=== PATIENT | female | born 1980 | race African-American/Black ===

== ENCOUNTER → 2016-11-28 | Outpatient (CLI) | payer MEDICAID | LOC: MW.MNT 12:05 | CPT/HCPCS: 97802 ==

== ENCOUNTER → 2016-12-07 | Outpatient (CLI) | payer MEDICAID ==
[2016-12-07 10:10] LABS: CHLORIDE,CL 106 mmol/L (98-110); SODIUM,NA 139 mmol/L (136-146)
--- NOTE | 2016-12-07 16:29 | US ---
EXAM DATE: 12/07/16 PATIENT'S AGE: 36 Patient: SARAH NAVA Facility: [place], [place] Site . Site : 1980 Study: US Abdomen [id number]/9/2017 10:37:22 AM Ordering Physician: Tracey Torres Final Report: INDICATION: Cholelithiasis. Right upper quadrant pain. TECHNIQUE: Ultrasound abdomen limited. Sonographic images of the right upper quadrant were obtained using merino-scale and color Doppler images. COMPARISON: None. FINDINGS: Gallbladder: Multiple gallbladder stones are present. No sign of gallbladder wall thickening or pericholecystic fluid. Common bile duct: 5 mm. IMPRESSION: Cholelithiasis without further evidence of cholecystitis. Dictated by Elver Randle MD @ 12/07/2016 10:54:11 AM Dictated by: Elver Randle MD @ 12/07/2016 10:54:18 (Electronic Signature) Report Signed by Proxy and Original Signed Document filed in the Medical Record. MTDD
== END ==
LOC: MW.CHIM 09:28
PROVIDERS: ATTEND Internal Medicine
DX: K80.00 Calculus of gallbladder with acute cholecystitis without obstruction (principal)
CPT/HCPCS: 36415; 76705; 76705-26; 80053; 85025

== ENCOUNTER 2017-02-10 11:52 | Emergency (ER) | payer MEDICAID, OTHER ==
[2017-02-10] MEDS ORDERED: Ketorolac 60 MG/2 ML SDV IM ONE (12:03)
[2017-02-10] MEDS ORDERED: Cyclobenzaprine 10 MG Tab PO ONE (12:11)
--- NOTE | 2017-02-10 12:23 | EDM.PDOC ---
ED HPI GENERAL MEDICAL PROBLEM - General Chief Complaint: Upper Extremity Injury/Pain Stated Complaint: PT FELT Time Seen by Provider: 02/10/17 11:53 Source of Information: Reports: Patient History Limitations: Reports: No Limitations - History of Present Illness INITIAL COMMENTS - FREE TEXT/NARRATIVE: History of present illness: [] Patient was cleaning house yesterday and her 4-year-old was behind her when she was putting sheets away in a closet and twisted and lost her balance. She did not want to fall down on her daughter so she fell onto her left side twisting away from her daughter. She states she has severe pain in her left side and it hurts to take deep breaths and to wipe. She does not feel short of breath denies any blood in her urine or abdominal pain. Review of systems: As per history of present illness and below otherwise all systems reviewed and negative. Past medical history: As per history of present illness and as reviewed below otherwise noncontributory. Surgical history: As per history of present illness and as reviewed below otherwise noncontributory. Social history: No reported history of drug or alcohol abuse. Family history: As per history of present illness and as reviewed below otherwise noncontributory. Physical exam: General: Well developed, well nourished in NAD, HEENT: Atraumatic, normocephalic, pupils reactive, negative for conjunctival pallor or scleral icterus, mucous membranes moist, throat clear, neck supple, nontender, trachea midline. Lungs: Clear to auscultation, breath sounds equal bilaterally, chest nontender. Heart: S1S2, regular, negative for clicks, rubs, or JVD. Abdomen: Obese, Soft, nondistended, left side tenderness. Negative for masses or hepatosplenomegaly. Negative for costovertebral tenderness. Pelvis: Stable nontender. Genitourinary: Deferred. Rectal: Deferred. Extremities: Atraumatic, negative for cords or calf pain. Neurovascular unremarkable. Neuro: Awake, alert, oriented. Cranial nerves II through XII unremarkable. Cerebellum unremarkable. Motor and sensory unremarkable throughout. Exam nonfocal. Diagnostics: [] Urine shows no blood on the chest x-ray Therapeutics: [] Toradol and Flexeril given in the ED Impression: [] Left side pain, likely muscle strain secondary to sudden twisting Plan: [] Tramadol Flexeril as needed for pain ice to area followup with PMD return if symptoms worsen or change Definitive disposition and diagnosis as appropriate pending reevaluation and review of above. left side of the abdomen Pain Score (Numeric/FACES): 10 - Related Data Allergies Allergy/AdvReac Type Severity Reaction Status Date / Time acetaminophen [From Vicodin] Allergy Other Verified 02/10/17 11:54 hydrocodone [From Vicodin] Allergy Other Verified 02/10/17 11:54 Home Meds: Home Meds Cyclobenzaprine [Flexeril] 10 mg PO BID PRN #12 tablet 02/10/17 [Rx] Hydrochlorothiazide [Hydrochlorothiazide] 25 mg PO DAILY 02/10/17 [History] traMADol [Ultram] 50 mg PO Q8H PRN #12 tablet 02/10/17 [Rx] Past Medical History HEENT History: Reports: None Cardiovascular History: Reports: Hypertension Respiratory History: Reports: None Gastrointestinal History: Reports: Other (See Below) Other Gastrointestinal History: Gallstones Genitourinary History: Reports: None [employer] History: Reports: Musculoskeletal History: Reports: None Neurological History: Reports: None Psychiatric History: Reports: None Endocrine/Metabolic History: Reports: None Hematologic History: Reports: None Immunologic History: Reports: None Oncologic (Cancer) History: Reports: None Dermatologic History: Reports: None - Infectious Disease History Infectious Disease History: Reports: None Social & Family History - Family History Family Medical History: Noncontributory - Tobacco Use Smoking Status *Q: Never Smoker - Caffeine Use Caffeine Use: Reports: Coffee - Recreational Drug Use Recreational Drug Use: No Review of Systems - Review of Systems Review Of Systems: See Below (See history of present illness) Trauma Exam - Physical Exam Exam: See Below (See history of present illness) Course - Vital Signs Last Recorded V/S: Last Vital Signs Temp 36.1 C 02/10/17 11:55 Pulse 77 02/10/17 11:55 Resp 18 02/10/17 11:55 BP 145/85 H 02/10/17 11:55 Pulse Ox 100 02/10/17 11:55 - Orders/Labs/Meds Orders: Active Orders 24 hr Category Date Time Status Chest 2V [CR] Stat Exams 02/10/17 12:03 Taken Labs: Laboratory Tests 02/10/17 Range/Units 12:10 Urine Color YELLOW Urine Appearance SLT CLOUDY Urine pH 6.0 (5.0-8.0) Ur Specific [place] 1.025 (1.001-1.035) Urine Protein TRACE (NEGATIVE) mg/dL Urine Glucose (UA) NEGATIVE (NEGATIVE) mg/dL Urine Ketones NEGATIVE (NEGATIVE) mg/dL Urine Occult Blood NEGATIVE (NEGATIVE) Urine Nitrite NEGATIVE (NEGATIVE) Urine Bilirubin NEGATIVE (NEGATIVE) Urine Urobilinogen 0.2 (<2.0) EU/dL Ur Leukocyte Esterase SMALL (NEGATIVE) Meds: Medications Discontinued Medications Generic Name Dose Route Start Last Admin Trade Name Freq PRN Reason Stop Dose Admin Cyclobenzaprine HCl 10 mg 02/10/17 12:11 02/10/17 12:14 Flexeril PO 02/10/17 12:12 10 mg ONETIME ONE Administration Ketorolac Tromethamine 60 mg 02/10/17 12:03 02/10/17 12:14 Toradol IM 02/10/17 12:04 60 mg ONETIME ONE Administration Departure - Departure Time of Disposition: 12:31 Disposition: Home, Self-Care 01 Condition: good Clinical Impression: Musculoskeletal strain - Discharge Information Prescriptions: Cyclobenzaprine [Flexeril] 10 mg PO BID PRN #12 tablet PRN Reason: Spasms traMADol [Ultram] 50 mg PO Q8H PRN #12 tablet PRN Reason: Pain Referrals: PCP,None [Primary Care Provider] - Forms: ED Department Discharge Additional Instructions: The following information is given to patients seen in the emergency department who are being discharged to home. This information is to outline your options for follow-up care. We provide all patients seen in our emergency department with a follow-up referral. The need for follow-up, as well as the timing and circumstances, are variable depending upon the specifics of your emergency department visit. If you don't have a primary care physician on staff, we will provide you with a referral. We always advise you to contact your personal physician following an emergency department visit to inform them of the circumstance of the visit and for follow-up with them and/or the need for any referrals to a consulting specialist. The emergency department will also refer you to a specialist when appropriate. This referral assures that you have the opportunity for follow-up care with a specialist. All of these measure are taken in an effort to provide you with optimal care, which includes your follow-up. Under all circumstances we always encourage you to contact your private physician who remains a resource for coordinating your care. When calling for follow-up care, please make the office aware that this follow-up is from your recent emergency room visit. If for any reason you are refused follow-up, please contact the [facility] Emergency Department at and asked to speak to the emergency department charge nurse. Tramadol and Flexeril for pain and spasm ice to area followup with primary care physician return if symptoms worsen or change. [facility] [address] [place] [address] - My Orders Last 24 Hours: My Active Orders 02/10/17 12:03 Chest 2V [CR] Stat - Assessment/Plan Last 24 Hours: My Active Orders 02/10/17 12:03 Chest 2V [CR] Stat
[2017-02-10 12:51] VITALS: BP 140/70
--- NOTE | 2017-02-12 14:52 | CR ---
EXAM DATE: 02/10/17 PATIENT'S AGE: 36 Patient: SARAH NAVA Facility: [place], [place] Site . Site : 1980 Study: XRay Chest [id number]/13/2017 12:25:55 PM Ordering Physician: Valdemar Mccarty Final Report: CHEST 2 VIEWS INDICATION: Injury. IMPRESSION: Normal heart size and vascular pattern. Lungs are clear. No pneumothorax or pleural abnormality. Dictated by Tomasz Jj MD @ Feb 10 2017 12:28PM (Electronic Signature) Report Signed by Proxy. [facility]USBelgica
== END 2017-02-10 12:50 | disposition home or self-care (01) ==
LOC: MW.ED 11:52
DX: S39.011A Strain of muscle, fascia and tendon of abdomen, initial encounter (principal); I10 Essential (primary) hypertension; Z88.6 Allergy status to analgesic agent; Z88.8 Allergy status to other drugs, medicaments and biological substances; Z79.899 Other long term (current) drug therapy; X50.1XXA Overexertion from prolonged static or awkward postures, initial encounter
CPT/HCPCS: 71020; 81003; 96372; 99283; A9270; J1885